=== PATIENT | male | born 1960 | race Hispanic/Latino ===

== ENCOUNTER → 2024-03-05 | Outpatient (CLI) | payer BC ==
[~2024-03-05] MED LIST: GADOTERATE MEGLUMINE 10 MMOL/20 ML VIAL IV ONE
--- NOTE | 2024-03-05 09:39 | HMCIMG ---
MR ABDOMEN W/WO CON HISTORY: Abnormal findings of liver and biliary tract COMPARISON: None TECHNIQUE: MRI of the abdomen was performed utilizing multiple pulse sequences in axial, coronal and sagittal planes. Patient was given 14 cc of Clariscan through intravenous route. FINDINGS: No pleural effusions are seen bilaterally. Liver measures 17 cm. There is left hepatic cyst measuring 15 mm. No gallstone is seen in the gallbladder. Common duct is not dilated. Subcentimeter renal cysts are seen. Spleen, adrenal glands and pancreas are unremarkable. Both kidneys are seen without hydronephrosis. There is no evidence of adenopathy or ascites. There is left retroaortic renal vein. No ascites is seen.. IMPRESSION: 1. No ascites. Small left hepatic cyst measuring 15 mm. No mass lesion or abnormal enhancement is seen.
== END | disposition home or self-care (01) ==
LOC: RAH 07:49
PROVIDERS: ATTEND Internal Medicine Gastroenterology
DX: K76.89 Other specified diseases of liver (principal); N28.1 Cyst of kidney, acquired; R93.2 Abnormal findings on diagnostic imaging of liver and biliary tract
CPT/HCPCS: 74183; A9575